=== PATIENT | male | born 1950 | race African-American/Black ===

== ENCOUNTER 2021-01-13 16:20 | Emergency (ER) | payer MEDICARE, MEDICAID ==
[~2021-01-13] VITALS: Ht 172.7 cm; Wt 78.0 kg
[~2021-01-13 16:20] MED LIST: BIC15 PO
[2021-01-13] MEDS ORDERED: LIDOCAINE HCL/PF 1% 10 MG/ML 5ML VIAL IJ ONE (16:45)
[2021-01-13 18:25] VITALS: BP 179/91
== END 2021-01-13 18:30 | disposition home or self-care (01) ==
LOC: ER 16:20
DX: L02.212 Cutaneous abscess of back [any part, except buttock and flank] (principal); I12.9 Hypertensive chronic kidney disease with stage 1 through stage 4 chronic kidney disease, or unspecified chronic kidney disease; N18.9 Chronic kidney disease, unspecified; Z86.718 Personal history of other venous thrombosis and embolism
CPT/HCPCS: 10060; 99282

== ENCOUNTER 2022-11-07 16:50 | Inpatient (IN) | payer MEDICARE, MEDICAID ==
[~2022-11-07] VITALS: Ht 175.3 cm; Wt 55.8 kg
[2022-11-07] MEDS ORDERED: SODIUM BICARBONATE 8.4% 1 MEQ/ML 50ML SYR IV ONE ×2 (17:45→18:30)
[2022-11-07] MEDS ORDERED: CALCIUM GLUCONATE 100MG/ML 10ML VIAL IV ONE (17:45)
[2022-11-07] MEDS ORDERED: ASPIRIN 81MG TABLET PO ONE (17:45)
[2022-11-07] MEDS ORDERED: AMIODARONE HCL 50MG/ML 3ML VIAL IV ONE (17:45)
[2022-11-07] MEDS ORDERED: AMIODARONE HCL 150 MG in DEXT 5% WATER 97 ML IV ONE (17:45)
[2022-11-07 17:57] LABS: HEMATOCRIT. 51.4 % (42.0-52.0); MEAN CORPUSCULAR HEMOGLOBIN 34.9 pg (28.0-32.0); MEAN CORPUSCULAR VOLUME 105.3 fL (80.0-94.0); MEAN PLATELET VOLUME 8.7 fl (7.4-10.4); PLATELET 306 x1000/uL (130-400); RED BLOOD CELL COUNT 4.88 mill/uL (4.7-6.1); RED CELL DISTRIBUTION WIDTH 13.6 % (11.6-14.6)
[2022-11-07] MEDS ORDERED: AMIODARONE HCL 900 MG in DEXT 5% WATER 500 ML IV PRN (18:00)
[2022-11-07] MEDS ORDERED: SODIUM BICARBONATE 8.4% 1 MEQ/ML 50ML SYR IV SCH (18:00)
[2022-11-07] MEDS ORDERED: MIDAZOLAM HCL 2 MG/2 ML VIAL IV ONE (18:00)
[2022-11-07 18:10] LABS: PHOSPHORUS 5.6 mg/dL (2.5-4.9)
[2022-11-07 18:15] LABS: CHLORIDE 109 mEq/L (98-107)
[2022-11-07] MEDS ORDERED: ALBUTEROL (0.083%) 2.5MG/3ML NEB HHN ONE (18:30)
[2022-11-07] MEDS ORDERED: MAGNESIUM 2 G PREMIX 50 ML IV ONE (18:30)
[2022-11-07] MEDS ORDERED: SODIUM POLYSTYRENE SULFONATE 15 G/60 ML BOT PO ONE (18:30)
[2022-11-07] MEDS ORDERED: HEPARIN 25,000 UNITS PREMIX 250 ML IV STA (18:37)
[2022-11-07] MEDS ORDERED: HEPARIN 5000 UNITS/ML VIAL IV ONE (18:45)
[2022-11-07] MEDS ORDERED: ACETAMINOPHEN 325MG TABLET PO PRN (19:45)
[2022-11-07] MEDS ORDERED: DIPHENHYDRAMINE 50MG/ML VIAL IV PRN (19:45)
[2022-11-07] MEDS ORDERED: ONDANSETRON HCL 4MG/2ML INJ IV PRN (19:45)
[2022-11-07] MEDS ORDERED: IPRATROPIUM/ALBUTEROL 0.5-3(2.5)MG/3ML NEB HHN PRN (19:45)
[2022-11-07] MEDS ORDERED: CLONIDINE 0.1MG TABLET PO PRN (19:45)
[2022-11-07 20:41] LABS: PLATELET ESTIMATE NORMAL
[2022-11-07 21:12] LABS: PARTIAL THROMBOPLASTIN TIME 31.9 sec (23.4-31.0); PROTHROMBIN TIME 10.8 sec (9.6-11.0)
[2022-11-07 21:40] LABS: PHOSPHORUS 4.4 mg/dL (2.5-4.9)
[2022-11-08] VITALS (27 sets, daily range): BP systolic 104–163; BP diastolic 70–102
[2022-11-08] MEDS ORDERED: SODIUM POLYSTYRENE SULFONATE 15 G/60 ML BOT PO NR (04:45)
[2022-11-08] MEDS ORDERED: HEPARIN 25,000 UNITS PREMIX 250 ML IV SCH ×2 (05:00→05:15)
[2022-11-08] MEDS ORDERED: HEPARIN 5000 UNITS/ML VIAL IV ONE (05:00)
[2022-11-08] MEDS ORDERED: HEPARIN BOLUS PRN aPTT <30 IV (05:15)
[2022-11-08] MEDS ORDERED: HEPARIN BOLUS PRN aPTT 30-44 IV (05:15)
[2022-11-08] MEDS ORDERED: HEPARIN 60 UNITS/KG BOLUS IV NR (05:30)
[2022-11-08] MEDS ORDERED: DILTIAZEM HCL 5MG/ML 5ML VIAL IV PRN (08:00)
[2022-11-08] MEDS: ENOXAPARIN 60MG/0.6ML SYR SUBCUT SCH (11:28)
[2022-11-08 13:01] LABS: HEMATOCRIT. 46.3 % (42.0-52.0); HEMOGLOBIN. 15.2 g/dL (14.0-18.0); MEAN CORPUSCULAR HEMOGLOBIN 34.3 pg (28.0-32.0); MEAN CORPUSCULAR VOLUME 104.7 fL (80.0-94.0); MEAN PLATELET VOLUME 9.1 fl (7.4-10.4); PLATELET 226 x1000/uL (130-400); RED BLOOD CELL COUNT 4.43 mill/uL (4.7-6.1); RED CELL DISTRIBUTION WIDTH 13.6 % (11.6-14.6)
[2022-11-08 13:06] LABS: CHLORIDE 109 mEq/L (98-107)
[2022-11-08] MEDS ORDERED: DILTIAZEM HCL 30MG TABLET PO SCH (14:00)
[2022-11-08 14:16] LABS: PLATELET ESTIMATE NORMAL
[2022-11-08] MEDS: DILTIAZEM HCL 60MG TABLET PO SCH ×2 (14:35→21:45)
[2022-11-08] MEDS ORDERED: ATOR40TA70 MT (15:24)
[2022-11-08] MEDS ORDERED: LISI40TA13 MT (15:25)
[2022-11-08] MEDS ORDERED: FURO20TA4 MT (15:25)
[2022-11-08] MEDS ORDERED: PANT40TA51 MT (15:26)
[2022-11-08] MEDS ORDERED: VITAMIN D (15:27)
[2022-11-08 22:17] LABS: CLARITY URINE CLEAR (CLEAR); COLOR URINE YELLOW (YELLOW); KETONES URINE NEGATIVE (NEGATIVE); LEUKOCYTE ESTERASE URINE NEGATIVE (NEGATIVE); NITRITE URINE NEGATIVE (NEGATIVE); OCCULT BLOOD URINE NEGATIVE (NEGATIVE); PROTEIN URINE 1+ (NEGATIVE); SPECIFIC GRAVITY URINE 1.018 (1.005-1.030); UROBILINOGEN URINE 0.2 E.U./dL (0.2-1.0)
[2022-11-09] VITALS (9 sets, daily range): BP systolic 93–146; BP diastolic 59–95
[2022-11-09] MEDS: DILTIAZEM HCL 60MG TABLET PO SCH ×3 (05:59→22:39)
[2022-11-09 07:50] LABS: HEMATOCRIT. 40.6 % (42.0-52.0); HEMOGLOBIN. 13.5 g/dL (14.0-18.0); MEAN CORPUSCULAR HEMOGLOBIN 34.4 pg (28.0-32.0); MEAN CORPUSCULAR VOLUME 103.6 fL (80.0-94.0); MEAN PLATELET VOLUME 9.5 fl (7.4-10.4); PLATELET 194 x1000/uL (130-400); RED BLOOD CELL COUNT 3.92 mill/uL (4.7-6.1); RED CELL DISTRIBUTION WIDTH 13.6 % (11.6-14.6)
[2022-11-09] MEDS: SODIUM BICARBONATE 650 MG TABLET PO SCH ×3 (09:33→17:05)
[2022-11-09] MEDS ORDERED: SODIUM POLYSTYRENE SULFONATE 15 G/60 ML BOT PO NR (11:30)
[2022-11-09] MEDS: ENOXAPARIN 60MG/0.6ML SYR SUBCUT SCH (13:10)
[2022-11-09 14:01] LABS: PLATELET ESTIMATE NORMAL
[2022-11-09 14:17] LABS: HEPATITIS B SURFACE ANTIGEN NEGATIVE
[2022-11-10] VITALS (13 sets, daily range): BP systolic 103–140; BP diastolic 55–92
[2022-11-10 06:25] LABS: HEMATOCRIT. 39.1 % (42.0-52.0); HEMOGLOBIN. 12.8 g/dL (14.0-18.0); MEAN CORPUSCULAR HEMOGLOBIN 34.2 pg (28.0-32.0); MEAN CORPUSCULAR VOLUME 104.1 fL (80.0-94.0); MEAN PLATELET VOLUME 10.5 fl (7.4-10.4); PLATELET 158 x1000/uL (130-400); RED BLOOD CELL COUNT 3.76 mill/uL (4.7-6.1); RED CELL DISTRIBUTION WIDTH 13.5 % (11.6-14.6)
[2022-11-10] MEDS: DILTIAZEM HCL 60MG TABLET PO SCH ×3 (06:50→22:03)
[2022-11-10] MEDS: SODIUM BICARBONATE 650 MG TABLET PO SCH ×3 (08:18→20:38)
[2022-11-10] MEDS ORDERED: LIDOCAINE HCL/PF 1% 10 MG/ML 5ML VIAL ONE (10:21)
[2022-11-10 12:22] LABS: TOTAL IRON BINDING CAPACITY 376 ug/dL (250-450)
[2022-11-10 13:20] LABS: PLATELET ESTIMATE NORMAL
[2022-11-10] MEDS ORDERED: DILTIAZEM HCL 30MG TABLET PO SCH (14:00)
[2022-11-10] MEDS ORDERED: DILTIAZEM HCL 5MG/ML 5ML VIAL IV NR (14:15)
[2022-11-10] MEDS: SUCRALFATE 1 G/10 ML UDC PO SCH ×3 (16:40→22:02)
[2022-11-10] MEDS ORDERED: SODIUM CHLORIDE 0.9% 1000ML BAG (SEPSIS BOLUS) IV NR (21:45)
[2022-11-10] MEDS: OMEPRAZOLE 20MG CAPSULE EXTENDED RELEASE PO SCH (22:02)
[2022-11-10] MEDS ORDERED: AMIODARONE HCL 150 MG in DEXT 5% WATER 100 ML IV NR (22:30)
[2022-11-10 22:48] LABS: HEPATITIS B SURFACE ANTIGEN NEGATIVE
[2022-11-10 22:50] LABS: FOLIC ACID (FOLATE) SERUM 17.6 ng/mL (>5.38)
[2022-11-11] VITALS: BP 102/63
[2022-11-11 02:33] LABS: HEMATOCRIT 34.9 % (42.0-52.0); HEMOGLOBIN 11.6 g/dL (14.0-18.0)
[2022-11-11 04:00] VITALS: BP 120/47
[2022-11-11] MEDS: DILTIAZEM HCL 60MG TABLET PO SCH ×3 (06:42→20:05)
[2022-11-11] MEDS: SUCRALFATE 1 G/10 ML UDC PO SCH ×4 (06:42→20:04)
[2022-11-11] MEDS: OMEPRAZOLE 20MG CAPSULE EXTENDED RELEASE PO SCH ×2 (06:42→20:04)
[2022-11-11 08:00] VITALS: BP 114/50
[2022-11-11] MEDS: SODIUM BICARBONATE 650 MG TABLET PO SCH ×3 (08:47→16:13)
[2022-11-11 11:46] LABS: HEMATOCRIT. 32.3 % (42.0-52.0); HEMOGLOBIN. 10.7 g/dL (14.0-18.0); MEAN CORPUSCULAR HEMOGLOBIN 34.2 pg (28.0-32.0); MEAN CORPUSCULAR VOLUME 103.9 fL (80.0-94.0); MEAN PLATELET VOLUME 10.8 fl (7.4-10.4); PLATELET 153 x1000/uL (130-400); RED BLOOD CELL COUNT 3.11 mill/uL (4.7-6.1); RED CELL DISTRIBUTION WIDTH 13.4 % (11.6-14.6)
[2022-11-11 12:00] VITALS: BP 133/72
[2022-11-11 13:00] LABS: PLATELET ESTIMATE NORMAL
[2022-11-11] MEDS: BENZONATATE 100MG CAPSULE PO PRN (15:22)
[2022-11-11 16:00] VITALS: BP 104/62
[2022-11-11] MEDS: FERROUS SULFATE 325MG TABLET PO SCH (16:16)
[2022-11-11 20:00] VITALS: BP 118/89
[2022-11-12] VITALS (7 sets, daily range): BP systolic 105–132; BP diastolic 63–103
[2022-11-12] MEDS: OMEPRAZOLE 20MG CAPSULE EXTENDED RELEASE PO SCH ×2 (06:01→21:06)
[2022-11-12] MEDS: SUCRALFATE 1 G/10 ML UDC PO SCH ×4 (06:01→21:06)
[2022-11-12] MEDS: DILTIAZEM HCL 60MG TABLET PO SCH ×3 (06:12→21:06)
[2022-11-12 06:52] LABS: HEMATOCRIT. 27.1 % (42.0-52.0); HEMOGLOBIN. 9.2 g/dL (14.0-18.0); MEAN CORPUSCULAR HEMOGLOBIN 34.6 pg (28.0-32.0); MEAN CORPUSCULAR VOLUME 102.2 fL (80.0-94.0); MEAN PLATELET VOLUME 10.4 fl (7.4-10.4); PLATELET 188 x1000/uL (130-400); RED BLOOD CELL COUNT 2.65 mill/uL (4.7-6.1); RED CELL DISTRIBUTION WIDTH 13.3 % (11.6-14.6)
[2022-11-12] MEDS: ASCORBIC ACID 500 MG TABLET PO SCH (09:21)
[2022-11-12] MEDS: FERROUS SULFATE 325MG TABLET PO SCH ×2 (09:21→17:00)
[2022-11-12] MEDS ORDERED: DILTIAZEM HCL 5MG/ML 5ML VIAL IV SCH (11:45)
[2022-11-12 14:09] LABS: PLATELET ESTIMATE NORMAL
[2022-11-12] MEDS: DILTIAZEM HCL 125 MG in DEXT 5% WATER 100 ML IV SCH (14:23)
[2022-11-13] VITALS (11 sets, daily range): BP systolic 107–133; BP diastolic 62–79
[2022-11-13] MEDS: DILTIAZEM HCL 60MG TABLET PO SCH ×3 (06:16→21:04)
[2022-11-13] MEDS: OMEPRAZOLE 20MG CAPSULE EXTENDED RELEASE PO SCH ×2 (06:16→21:04)
[2022-11-13] MEDS: SUCRALFATE 1 G/10 ML UDC PO SCH ×4 (06:16→21:04)
[2022-11-13 07:12] LABS: HEMATOCRIT. 26.8 % (42.0-52.0); HEMOGLOBIN. 9.2 g/dL (14.0-18.0); MEAN CORPUSCULAR HEMOGLOBIN 35.3 pg (28.0-32.0); MEAN CORPUSCULAR VOLUME 103.1 fL (80.0-94.0); MEAN PLATELET VOLUME 10.2 fl (7.4-10.4); PLATELET 239 x1000/uL (130-400); RED CELL DISTRIBUTION WIDTH 13.6 % (11.6-14.6)
[2022-11-13] MEDS: FERROUS SULFATE 325MG TABLET PO SCH ×2 (09:11→17:18)
[2022-11-13] MEDS: ASCORBIC ACID 500 MG TABLET PO SCH (09:11)
[2022-11-13 12:56] LABS: PLATELET ESTIMATE NORMAL
[2022-11-13] MEDS: DILTIAZEM HCL 125 MG in DEXT 5% WATER 100 ML IV SCH ×2 (12:59→14:10)
[2022-11-13] MEDS ORDERED: DILTIAZEM HCL 5MG/ML 5ML VIAL IV PRN (14:00)
[2022-11-14] VITALS: BP 128/70
[2022-11-14] MEDS: DILTIAZEM HCL 125 MG in DEXT 5% WATER 100 ML IV SCH ×2 (01:53→13:53)
[2022-11-14 04:00] VITALS: BP 126/60
[2022-11-14] MEDS: DILTIAZEM HCL 60MG TABLET PO SCH ×3 (06:54→21:10)
[2022-11-14] MEDS: SUCRALFATE 1 G/10 ML UDC PO SCH ×4 (06:54→21:09)
[2022-11-14] MEDS: OMEPRAZOLE 20MG CAPSULE EXTENDED RELEASE PO SCH ×2 (06:54→21:10)
[2022-11-14 08:00] VITALS: BP 120/61
[2022-11-14] MEDS: ASCORBIC ACID 500 MG TABLET PO SCH (08:19)
[2022-11-14] MEDS: FERROUS SULFATE 325MG TABLET PO SCH ×2 (08:19→16:40)
[2022-11-14 09:34] LABS: HEMATOCRIT. 22.1 % (42.0-52.0); HEMOGLOBIN. 7.5 g/dL (14.0-18.0); MEAN CORPUSCULAR HEMOGLOBIN 35.3 pg (28.0-32.0); MEAN CORPUSCULAR VOLUME 103.4 fL (80.0-94.0); MEAN PLATELET VOLUME 8.5 fl (7.4-10.4); PLATELET 255 x1000/uL (130-400); RED BLOOD CELL COUNT 2.14 mill/uL (4.7-6.1); RED CELL DISTRIBUTION WIDTH 13.5 % (11.6-14.6)
[2022-11-14 12:00] VITALS: BP 121/72
[2022-11-14 16:00] VITALS: BP 112/75
[2022-11-14 20:00] VITALS: BP 130/68
[2022-11-14 23:07] LABS: PLATELET ESTIMATE NORMAL
[2022-11-15] VITALS: BP 122/62
[2022-11-15] MEDS: DILTIAZEM HCL 125 MG in DEXT 5% WATER 100 ML IV SCH ×2 (01:45→15:21)
[2022-11-15 04:00] VITALS: BP 105/69
[2022-11-15] MEDS: DILTIAZEM HCL 60MG TABLET PO SCH (05:36)
[2022-11-15] MEDS: SUCRALFATE 1 G/10 ML UDC PO SCH ×4 (05:41→20:21)
[2022-11-15] MEDS: OMEPRAZOLE 20MG CAPSULE EXTENDED RELEASE PO SCH ×2 (05:41→20:21)
[2022-11-15 07:25] LABS: HEMATOCRIT. 23.1 % (42.0-52.0); HEMOGLOBIN. 7.6 g/dL (14.0-18.0); MEAN CORPUSCULAR HEMOGLOBIN 34.6 pg (28.0-32.0); MEAN CORPUSCULAR VOLUME 104.8 fL (80.0-94.0); MEAN PLATELET VOLUME 8.5 fl (7.4-10.4); PLATELET 288 x1000/uL (130-400); RED CELL DISTRIBUTION WIDTH 13.3 % (11.6-14.6)
[2022-11-15 08:00] VITALS: BP 109/72
[2022-11-15] MEDS: ASCORBIC ACID 500 MG TABLET PO SCH (09:04)
[2022-11-15] MEDS: FERROUS SULFATE 325MG TABLET PO SCH ×2 (09:04→16:26)
[2022-11-15] MEDS: METOPROLOL TARTRATE 50MG TABLET PO SCH ×2 (09:27→20:21)
[2022-11-15 10:19] LABS: NUCLEATED RED BLOOD CELLS 1 /100 WBC; PLATELET ESTIMATE NORMAL
[2022-11-15 12:00] VITALS: BP 111/54
[2022-11-15 16:00] VITALS: BP 111/60
[2022-11-15 20:00] VITALS: BP 113/53
[2022-11-16] VITALS: BP 112/64
[2022-11-16] MEDS: DILTIAZEM HCL 125 MG in DEXT 5% WATER 100 ML IV SCH (03:17)
[2022-11-16 04:00] VITALS: BP_SYST 100; BP_SYST 94; BP_DIAS 44; BP_DIAS 55
[2022-11-16] MEDS: OMEPRAZOLE 20MG CAPSULE EXTENDED RELEASE PO SCH ×2 (05:48→23:01)
[2022-11-16] MEDS: SUCRALFATE 1 G/10 ML UDC PO SCH ×4 (05:48→23:01)
[2022-11-16 08:00] VITALS: BP_SYST 125; BP_SYST 87; BP_DIAS 53; BP_DIAS 78
[2022-11-16 08:03] LABS: HEMOGLOBIN. 7.7 g/dL (14.0-18.0); MEAN CORPUSCULAR HEMOGLOBIN 35.3 pg (28.0-32.0); MEAN CORPUSCULAR VOLUME 105.4 fL (80.0-94.0); MEAN PLATELET VOLUME 8.6 fl (7.4-10.4); PLATELET 305 x1000/uL (130-400); RED BLOOD CELL COUNT 2.19 mill/uL (4.7-6.1)
[2022-11-16 08:47] LABS: PHOSPHORUS 2.9 mg/dL (2.5-4.9)
[2022-11-16] MEDS: ASCORBIC ACID 500 MG TABLET PO SCH (09:05)
[2022-11-16] MEDS: METOPROLOL TARTRATE 50MG TABLET PO SCH ×2 (09:05→23:01)
[2022-11-16] MEDS: FERROUS SULFATE 325MG TABLET PO SCH ×2 (09:05→17:19)
[2022-11-16] MEDS ORDERED: POTASSIUM CHLORIDE 20MEQ TABLET SR PO NR (09:15)
[2022-11-16] MEDS: BENZONATATE 100MG CAPSULE PO PRN (09:39)
[2022-11-16] MEDS ORDERED: MAGNESIUM 2 G PREMIX 50 ML IV NR (10:30)
[2022-11-16 10:52] LABS: PLATELET ESTIMATE NORMAL
[2022-11-16 12:00] VITALS: BP 90/57
[2022-11-16] MEDS ORDERED: NALOXONE HCL 0.4MG/ML VIAL IV PRN (12:15)
[2022-11-16] MEDS ORDERED: MORPHINE SULFATE 2 MG/ML CPJ (NOT FOR IM USE) IV PRN (12:15)
[2022-11-16 16:00] VITALS: BP 100/55
[2022-11-16] MEDS ORDERED: DILTIAZEM HCL 125 MG in DEXT 5% WATER 100 ML IV SCH (17:00)
[2022-11-16 20:00] VITALS: BP 113/72
[2022-11-17] VITALS: BP 92/55
[2022-11-17 04:00] VITALS: BP 104/52
[2022-11-17] MEDS: OMEPRAZOLE 20MG CAPSULE EXTENDED RELEASE PO SCH ×2 (05:07→21:20)
[2022-11-17] MEDS: SUCRALFATE 1 G/10 ML UDC PO SCH ×4 (05:07→21:20)
[2022-11-17 08:00] VITALS: BP 107/54
[2022-11-17 08:44] LABS: HEMATOCRIT. 23.7 % (42.0-52.0); HEMOGLOBIN. 7.9 g/dL (14.0-18.0); MEAN CORPUSCULAR VOLUME 105.5 fL (80.0-94.0); MEAN PLATELET VOLUME 8.4 fl (7.4-10.4); PLATELET 338 x1000/uL (130-400); RED BLOOD CELL COUNT 2.25 mill/uL (4.7-6.1)
[2022-11-17] MEDS: FERROUS SULFATE 325MG TABLET PO SCH ×2 (08:56→16:54)
[2022-11-17] MEDS: ASCORBIC ACID 500 MG TABLET PO SCH (08:57)
[2022-11-17] MEDS: METOPROLOL TARTRATE 50MG TABLET PO SCH (08:57)
[2022-11-17 12:00] VITALS: BP 103/51
[2022-11-17 13:18] LABS: PLATELET ESTIMATE NORMAL
[2022-11-17 16:00] VITALS: BP 106/65
[2022-11-17 20:00] VITALS: BP 113/71
[2022-11-17] MEDS: METOPROLOL TARTRATE 100MG TABLET PO SCH (21:20)
[2022-11-18] VITALS: BP 120/56
[2022-11-18 04:00] VITALS: BP_SYST 105; BP_SYST 106; BP_DIAS 72; BP_DIAS 76
[2022-11-18] MEDS: OMEPRAZOLE 20MG CAPSULE EXTENDED RELEASE PO SCH ×2 (05:54→20:25)
[2022-11-18] MEDS: SUCRALFATE 1 G/10 ML UDC PO SCH ×4 (05:54→20:25)
[2022-11-18 07:53] LABS: BASOPHILS % 0.2 % (0.0-2.0); EOSINOPHILS % 1.6 % (0.0-5.0); HEMATOCRIT. 24.1 % (42.0-52.0); HEMOGLOBIN. 7.8 g/dL (14.0-18.0); LYMPHOCYTES % 33.8 % (20.0-50.0); MEAN CORPUSCULAR HEMOGLOBIN 34.1 pg (28.0-32.0); MEAN CORPUSCULAR VOLUME 104.8 fL (80.0-94.0); MEAN PLATELET VOLUME 8.3 fl (7.4-10.4); NEUTROPHILS % 50.4 % (40.0-76.0); PLATELET 385 x1000/uL (130-400); RED CELL DISTRIBUTION WIDTH 13.5 % (11.6-14.6)
[2022-11-18 08:00] VITALS: BP 102/57
[2022-11-18] MEDS ORDERED: DEXT 5%/0.45% NACL 1000ML 1,000 ML IV ONE (08:30)
[2022-11-18] MEDS: FERROUS SULFATE 325MG TABLET PO SCH ×2 (09:02→17:24)
[2022-11-18] MEDS: METOPROLOL TARTRATE 100MG TABLET PO SCH ×2 (09:02→20:37)
[2022-11-18] MEDS: ASCORBIC ACID 500 MG TABLET PO SCH (09:02)
[2022-11-18] MEDS ORDERED: METOCLOPRAMIDE HCL 10MG/2ML VIAL IV SCH (10:00)
[2022-11-18 10:34] LABS: PROTHROMBIN TIME 10.5 sec (9.6-11.0)
[2022-11-18 12:00] VITALS: BP 101/67
[2022-11-18] MEDS ORDERED: METOCLOPRAMIDE HCL 10MG/2ML VIAL IV NR (14:00)
[2022-11-18 16:00] VITALS: BP 106/76
[2022-11-18 20:00] VITALS: BP 92/53
[2022-11-18] MEDS: DILTIAZEM HCL 5MG/ML 5ML VIAL IV PRN (22:10)
[2022-11-19] VITALS (11 sets, daily range): BP systolic 98–131; BP diastolic 56–75
[2022-11-19] MEDS: DILTIAZEM HCL 5MG/ML 5ML VIAL IV PRN (03:53)
[2022-11-19] MEDS: OMEPRAZOLE 20MG CAPSULE EXTENDED RELEASE PO SCH ×2 (06:11→20:34)
[2022-11-19] MEDS: SUCRALFATE 1 G/10 ML UDC PO SCH ×4 (06:11→20:34)
[2022-11-19 07:35] LABS: BASOPHILS % 0.6 % (0.0-2.0); EOSINOPHILS % 1.4 % (0.0-5.0); HEMATOCRIT. 21.1 % (42.0-52.0); LYMPHOCYTES % 28.7 % (20.0-50.0); MEAN CORPUSCULAR HEMOGLOBIN 34.6 pg (28.0-32.0); MEAN CORPUSCULAR VOLUME 105.9 fL (80.0-94.0); MEAN PLATELET VOLUME 8.2 fl (7.4-10.4); MONOCYTES % 13.7 % (2.0-8.0); NEUTROPHILS % 55.6 % (40.0-76.0); PLATELET 410 x1000/uL (130-400)
[2022-11-19 08:12] LABS: HEMOGLOBIN. 6.9 g/dL (14.0-18.0)
[2022-11-19] MEDS: FERROUS SULFATE 325MG TABLET PO SCH ×2 (09:32→18:12)
[2022-11-19] MEDS: ASCORBIC ACID 500 MG TABLET PO SCH (09:32)
[2022-11-19] MEDS: METOPROLOL TARTRATE 100MG TABLET PO SCH ×2 (09:33→20:34)
[2022-11-19 17:36] LABS: HEMATOCRIT 27.2 % (42.0-52.0); HEMOGLOBIN 8.9 g/dL (14.0-18.0)
[2022-11-20] VITALS: BP 134/73
[2022-11-20 04:00] VITALS: BP 120/72
[2022-11-20] MEDS: OMEPRAZOLE 20MG CAPSULE EXTENDED RELEASE PO SCH ×2 (06:14→22:31)
[2022-11-20] MEDS: SUCRALFATE 1 G/10 ML UDC PO SCH ×4 (06:14→22:31)
[2022-11-20 08:00] VITALS: BP 135/75
[2022-11-20] MEDS: ASCORBIC ACID 500 MG TABLET PO SCH (08:52)
[2022-11-20] MEDS: METOPROLOL TARTRATE 100MG TABLET PO SCH ×2 (08:52→22:32)
[2022-11-20] MEDS: FERROUS SULFATE 325MG TABLET PO SCH ×2 (08:52→16:43)
[2022-11-20 12:00] VITALS: BP 104/78
[2022-11-20 16:00] VITALS: BP 112/74
[2022-11-20 20:00] VITALS: BP 104/54
[2022-11-21] VITALS: BP 118/81
[2022-11-21] MEDS: SODIUM CHLORIDE 0.45% 1,000 ML IV SCH ×2 (01:37→13:20)
[2022-11-21 04:00] VITALS: BP 138/75
[2022-11-21] MEDS: OMEPRAZOLE 20MG CAPSULE EXTENDED RELEASE PO SCH ×2 (05:58→21:23)
[2022-11-21] MEDS: SUCRALFATE 1 G/10 ML UDC PO SCH ×4 (05:58→21:23)
[2022-11-21 06:56] LABS: PARTIAL THROMBOPLASTIN TIME 26.8 sec (23.4-31.0); PROTHROMBIN TIME 10.9 sec (9.6-11.0)
[2022-11-21 06:58] LABS: HEMATOCRIT. 24.5 % (42.0-52.0); HEMOGLOBIN. 8.1 g/dL (14.0-18.0); MEAN CORPUSCULAR HEMOGLOBIN 33.9 pg (28.0-32.0); MEAN CORPUSCULAR VOLUME 102.8 fL (80.0-94.0); MEAN PLATELET VOLUME 7.8 fl (7.4-10.4); PLATELET 507 x1000/uL (130-400); RED BLOOD CELL COUNT 2.39 mill/uL (4.7-6.1); RED CELL DISTRIBUTION WIDTH 14.9 % (11.6-14.6)
[2022-11-21 08:00] VITALS: BP 125/76
[2022-11-21] MEDS: ASCORBIC ACID 500 MG TABLET PO SCH (09:00)
[2022-11-21] MEDS: FERROUS SULFATE 325MG TABLET PO SCH ×2 (09:00→17:19)
[2022-11-21] MEDS: METOPROLOL TARTRATE 100MG TABLET PO SCH ×2 (09:15→21:23)
[2022-11-21 09:40] LABS: PHOSPHORUS 2.5 mg/dL (2.5-4.9)
[2022-11-21 12:00] VITALS: BP 110/60
[2022-11-21] MEDS ORDERED: LABETALOL 5MG/ML SYR 20 MG/4 ML SYRINGE IV PRN (12:45)
[2022-11-21] MEDS ORDERED: ONDANSETRON HCL 4MG/2ML INJ IV PRN (12:45)
[2022-11-21] MEDS ORDERED: MEPERIDINE HCL/PF 25MG/ML CPJ IV PRN (12:45)
[2022-11-21] MEDS ORDERED: HYDROMORPHONE HCL/PF 2MG/ML CPJ IV PRN (12:45)
[2022-11-21] MEDS ORDERED: CEFAZOLIN 1000MG PREMIX 50 ML IV NR (14:00)
[2022-11-21 16:00] VITALS: BP 118/73
[2022-11-21 17:19] LABS: PLATELET ESTIMATE INCREASED
[2022-11-21 20:00] VITALS: BP 123/73
[2022-11-22] VITALS: BP 101/48
[2022-11-22 04:00] VITALS: BP 112/69
[2022-11-22] MEDS: SUCRALFATE 1 G/10 ML UDC PO SCH ×3 (06:07→17:05)
[2022-11-22] MEDS: OMEPRAZOLE 20MG CAPSULE EXTENDED RELEASE PO SCH (06:07)
[2022-11-22] MEDS: SODIUM CHLORIDE 0.45% 1,000 ML IV SCH (06:08)
[2022-11-22 08:28] VITALS: BP 115/82
[2022-11-22] MEDS: FERROUS SULFATE 325MG TABLET PO SCH ×2 (09:03→17:05)
[2022-11-22] MEDS: ASCORBIC ACID 500 MG TABLET PO SCH (09:03)
[2022-11-22] MEDS: METOPROLOL TARTRATE 100MG TABLET PO SCH (09:04)
[2022-11-22 12:00] VITALS: BP 106/64
[2022-11-22] MEDS ORDERED: IRON SUCROSE COMPLEX 100 MG/5 ML ML IV NR (12:45)
[2022-11-22] MEDS ORDERED: SUCR1ORA15 PO (12:56)
[2022-11-22] MEDS ORDERED: METO100T16 PO (12:56)
[2022-11-22] MEDS ORDERED: PANT40TA51 MT (12:56)
[2022-11-22] MEDS ORDERED: APIX2.5T MT (14:38)
[2022-11-22 16:00] VITALS: BP 100/60
[2022-11-22 17:53] VITALS: BP 101/60
== END 2022-11-22 19:30 | disposition home health service (06) | DRG 377 ==
LOC: ER 16:50 → EDBEDREQTM 19:27 → EDBEDREQ 19:27 → ENRESERV 11-08 06:26 → CVICU 11-08 07:53 → 3WST 11-08 18:26 → 7EST 11-10 11:47
PROVIDERS: ADMIT Family Medicine Adult Medicine; ATTEND Family Medicine Adult Medicine
PROC: 5A2204Z Restoration of Cardiac Rhythm, Single (ICD-10-PCS; 2022-11-08)
PROC: 5A1D70Z Performance of Urinary Filtration, Intermittent, Less than 6 Hours Per Day (ICD-10-PCS; 2022-11-10)
PROC: 05HM33Z Insertion of Infusion Device into Right Internal Jugular Vein, Percutaneous Approach (ICD-10-PCS; 2022-11-10)
PROC: B543ZZA Ultrasonography of Right Jugular Veins, Guidance (ICD-10-PCS; 2022-11-10)
PROC: 5A1D70Z Performance of Urinary Filtration, Intermittent, Less than 6 Hours Per Day (ICD-10-PCS; 2022-11-13)
PROC: 30233N1 Transfusion of Nonautologous Red Blood Cells into Peripheral Vein, Percutaneous Approach (ICD-10-PCS; 2022-11-19)
PROC: 0DB98ZX Excision of Duodenum, Via Natural or Artificial Opening Endoscopic, Diagnostic (ICD-10-PCS; principal; 2022-11-21)
PROC: 0DB68ZX Excision of Stomach, Via Natural or Artificial Opening Endoscopic, Diagnostic (ICD-10-PCS; 2022-11-21)
DX: K29.71 Gastritis, unspecified, with bleeding (principal); I21.4 Non-ST elevation (NSTEMI) myocardial infarction; U07.1 COVID-19; I47.1 Supraventricular tachycardia; N17.9 Acute kidney failure, unspecified; E87.20 Acidosis, unspecified; E44.0 Moderate protein-calorie malnutrition; N18.4 Chronic kidney disease, stage 4 (severe); I48.92 Unspecified atrial flutter; E87.5 Hyperkalemia; I48.0 Paroxysmal atrial fibrillation; D75.1 Secondary polycythemia; D63.1 Anemia in chronic kidney disease; E83.39 Other disorders of phosphorus metabolism; D53.9 Nutritional anemia, unspecified; J44.9 Chronic obstructive pulmonary disease, unspecified; I45.10 Unspecified right bundle-branch block; E83.41 Hypermagnesemia; I12.9 Hypertensive chronic kidney disease with stage 1 through stage 4 chronic kidney disease, or unspecified chronic kidney disease; Z87.891 Personal history of nicotine dependence; Z86.718 Personal history of other venous thrombosis and embolism; Z87.11 Personal history of peptic ulcer disease; Z91.15 Patient's noncompliance with renal dialysis
CPT/HCPCS: 36415; 36556; 71045; 74018; 74176; 76770; 76937; 80048; 80053; 80076; 81003; 82270; 82378; 82575; 82607; 82728; 82746; 83540; 83550; 83735; 83880; 84100; 84484; 85014; 85018; 85025; 85044; 86705; 86706; 86709; 86803; 86850; 86900; 86920; 87015; 87045; 87340; 87426; 87427; 87449; 88305; 90935; 93005; 93306; 93970; 94644; 97162; 99291; C1752; J0282; J0610; J0690; J1642; J1644; J1650; J2250; J2405; J2765; J3475; J3490; J7060; P9016